=== PATIENT | male | born 1970 | race Two or more races ===

== ENCOUNTER 2016-08-22 11:57 | Emergency (ER) | payer BC ==
[2016-08-22] MEDS ORDERED: MAXZIDE 37.5 M1 EAC1 PO (12:12)
[2016-08-22] MEDS ORDERED: LOTREL 10-40 M1 EACH PO (12:12)
[2016-08-22] MEDS ORDERED: VITAMIN D5000 UNI1 PO (12:13)
[2016-08-22 12:54] LABS: BASO % 0.3 % (0-2); EOS % 0.3 % (0-7); HCT-HEMATOCRIT 42.4 % (36.0-53.5); HGB-HEMOGLOBIN 15.3 gm/dl (13.5-17.0); IMMATURE GRANULOCYTES ABSOLUTE 0.02 tho/cmm (0-0.03); IMMATURE GRANULOCYTES PERCENT 0.3 % (0-0.3); LYMPH % 11.5 % (20-45); LYMPH ABSOLUTE COUNT 0.9 tho/cmm (0.8-4.5); MCH (MEAN CORPUSCULAR HGB) 31.5 pg (28.0-32.0); MCHC MEAN CORPUSCULAR HGB CONC 36.1 % (32.0-36.0); MCV (MEAN CELL VOLUME) 87.4 fl (82.0-96.0); MEAN PLATELET VOLUME 9.7 cmc (9.4-12.4); MONO % 3.8 % (0-12); MONOCYTE ABSOLUTE COUNT 0.3 tho/cmm (0.0-1.2); NEUTROPHIL ABSOLUTE COUNT 6.3 tho/cmm (1.6-8.0); NEUTROPHIL-AUTOMATED 6.3 tho/cmm (1.6-8.0); NEUTROPHILS % 83.8 % (40-80); PLATELET COUNT 212 tho/cmm (150-450); RED BLOOD COUNT 4.85 mil/cmm (4.40-5.70); WHITE BLOOD COUNT 7.5 tho/cmm (4.0-10.0)
[2016-08-22 13:11] LABS: ALB/GLOB RATIO 0.8 (0.8-2.0); ALKALINE PHOSPHATASE 73 U/L (33-138); ALT/SGPT 40 U/L (12-78); ANION GAP 13 mmol/L (0-20); AST/SGOT 31 U/L (10-40); BILIRUBIN,TOTAL 0.5 mg/dl (0.0-1.5); BLOOD UREA NITROGEN 12 mg/dl (6-24); CALCIUM 8.7 mg/dl (8.5-10.5); CARBON DIOXIDE-VENOUS 27 mmol/L (22-32); CHLORIDE 104 mmol/l (96-110); CREATININE 1.17 mg/dl (0.60-1.30); GLUCOSE 124 mg/dL (70-110); POTASSIUM 3.3 mmol/L (3.7-5.1); SODIUM 141 mmol/L (135-145); eGFR VALUE FOR BLACK 86 mL/Min
[2016-08-22 13:23] LABS: ESR-ERYTHROCYTE SED RATE 11 mm/hr (0-15)
[2016-08-22] MEDS ORDERED: MECLIZINE HCL25 M3 PO (14:34)
[2016-08-22] MEDS ORDERED: POTASSIUM CHLO10 ME2 PO (14:34)
[2016-08-22] MEDS ORDERED: ZOFRAN4 M2 PO (14:34)
[2016-08-23 15:25] LABS: TSH-THYROID STIMULATING HORM. 1.72 uIU/ml (0.40-3.80)
== END 2016-08-22 14:39 ==
LOC: EDMED 11:57
PROVIDERS: Emergency Medicine
DX: E87.6 Hypokalemia (principal); R42 Dizziness and giddiness; R20.2 Paresthesia of skin; I10 Essential (primary) hypertension; Z90.49 Acquired absence of other specified parts of digestive tract; Z79.899 Other long term (current) drug therapy